=== PATIENT | male | born 1950 | race Caucasian/White ===

== ENCOUNTER 2021-11-05 10:10 | Outpatient (CLI) | payer MEDICARE, BC ==
--- NOTE | 2021-11-05 09:56 | XRAY Report ---
PROCEDURE: Calcaneus RT INDICATIONS: RIGHT HEEL PAIN TECHNIQUE: Two views of the calcaneus were acquired. COMPARISON: None FINDINGS: Bones: No fractures or dislocations. No suspicious bony lesions. Soft tissues: No suspicious calcifications. Achilles tendon appears normal. IMPRESSION: No visualized acute fracture or dislocation. However, occult injury cannot be excluded. Recommend perla rt interval imaging follow-up in 7-10 days as clinically indicated for additional evaluation. Reviewed by: Kaylyn Galloway MD on 11/05/2021 9:54 AM PDT Approved by: Kaylyn Galloway MD on 11/05/2021 9:54 AM PDT Station ID: [id number]
--- NOTE | 2021-11-05 10:17 | XRAY Report ---
PROCEDURE: Thoracic Spine 3 View INDICATIONS: THORACIC BACK PAIN TECHNIQUE: 3 views of the thoracic spine were acquired. COMPARISON: None. FINDINGS: Bones: No fractures or dislocations. No suspicious bony lesions. 12 pairs of ribs are noted, and a ppear intact where visualized. Scattered disc space narrowing. Soft tissues: No paravertebral stripe thickening. IMPRESSION: No visualized acute fracture or dislocation. However, occult injury cannot be excluded. Recommend perla rt interval imaging follow-up in 7-10 days as clinically indicated for additional evaluation. Reviewed by: Kaylyn Gallwoay MD on 11/05/2021 10:16 AM PDT Approved by: Kaylyn Galloway MD on 11/05/2021 10:16 AM PDT Station ID: [id number]
== END 2021-11-05 10:11 | disposition home or self-care (01) ==
LOC: DI.S 10:10
PROVIDERS: ATTEND Physician Assistant Medical
DX: M79.671 Pain in right foot (principal); M54.6 Pain in thoracic spine